=== PATIENT | male | born 1985 | race Caucasian/White ===

== ENCOUNTER 2017-07-20 19:58 | Emergency (ER) | payer MEDICAID, OTHER ==
[~2017-07-20] VITALS: Ht 177.8 cm; Wt 90.7 kg
[~2017-07-20 19:58] MED LIST: CLIN150C14 PO; CLIN300C8 PO; HYDR-971 PO; OXYC-323 PO
[2017-07-20 20:06] VITALS: BP 156/95
[2017-07-20] MEDS ORDERED: CLINDAMYCIN HCL 150 MG CAPSULE. PO ONE (20:30)
[2017-07-20] MEDS ORDERED: HYDROcodone/APAP 5/325MG 1 TAB TABLET PO ONE (20:30)
[2017-07-20] MEDS ORDERED: DICL50TA4 PO (20:42)
[2017-07-20] MEDS ORDERED: CLIN150C14 PO (20:42)
--- NOTE | 2017-07-20 20:42 | PHYS DOC ---
Past Medical History Past Medical History: Renal Failure, Unknown Additional Past Medical Histor: Osteomyelitis Past Surgical History: Other Additional Past Surgical Histo: dental, 'bladder reduction, kidney reduction' Alcohol Use: Occasionally Drug Use: None Adult General Chief Complaint Chief Complaint: DENTAL PROBLEM HPI HPI Patient is a 32 year old male with history of renal failure and joint infections/dental infection who presents today complaining of moderate right lower jaw dental pain from a dental infection that has been going on for months. Patient states he had similar infection on the left lower jaw. Patient denies any fever or trismus. No obvious gum swelling noted Review of Systems Review of Systems Constitutional: Denies fever or chills [] HENT: Right lower jaw dental infection. Musculoskeletal: Denies back pain or joint pain [] Integument: Denies rash or skin lesions [] Neurologic: Denies headache, focal weakness or sensory changes [] All other systems were reviewed and found to be within normal limits, except as documented in this note. Current Medications Current Medications Current Medications Medications (Trade) Dose Ordered Sig/Maricarmen Start Time Stop Time Status Last Admin Dose Admin Acetaminophen/ Hydrocodone Bitart (Lortab 5/325) 1 tab 1X ONCE 07/20/17 20:30 07/20/17 20:31 DC Clindamycin HCl (Cleocin) 450 mg 1X ONCE 07/20/17 20:30 07/20/17 20:31 DC Allergies Allergies Allergies Coded Allergies Type Severity Reaction Last Updated Verified Penicillins Allergy Intermediate Rash 04/09/16 Yes vancomycin Allergy Intermediate Nausea and Vomiting 04/09/16 Yes Physical Exam Physical Exam Constitutional: Well developed, well nourished, no acute distress, non-toxic appearance. [] HENT: Normocephalic, atraumatic, bilateral external ears normal, oropharynx moist, nose normal. [] Scattered dental caries noted throughout his teeth. No obvious dental abscess. No obvious gum swelling noted on exam. No obvious gum redness. Skin: Warm, dry, no erythema, no rash. [] Back: No tenderness, no CVA tenderness. [] Extremities: No tenderness, no cyanosis, no clubbing, ROM intact, no edema. [] Neurologic: Alert and oriented X 3, normal motor function, normal sensory function, no focal deficits noted. [] Psychologic: Affect normal, judgement normal, mood normal. [] Current Patient Data Vital Signs Vital Signs Date Time Temp Pulse Resp B/P (MAP) Pulse Ox O2 Delivery O2 Flow Rate FiO2 07/20/17 20:06 98.1 95 20 100 Room Air 98.1 EKG EKG [] Radiology/Procedures Radiology/Procedures [] Course & Med Decision Making Course & Med Decision Making Pertinent Labs and Imaging studies reviewed. (See chart for details) Patient is in the ED with chronic jaw pain from dental infections. Patient states he has history of chronic joint infections. I looked back in his chart. This patient has been documented to have been seen at [facility] where he was noncompliant with his treatment and was fired by a surgeon. Questioned patient about this. Patient states he had his jaw shut after they did surgery to clear the infection. He states he requested them to remove the wiring so he can eat and the doctor who did the procedure has refused to see him since then. Discharged patient on clindamycin and diclofenac. Instructed him to follow-up with a dentist or oral surgeon. Dragon Disclaimer Dragon Disclaimer This electronic medical record was generated, in whole or in part, using a voice recognition dictation system. Departure Departure Impression: Primary Impression: Infected dental caries Disposition: HOME, SELF-CARE Condition: STABLE Referrals: NO PCP (PCP) Follow up with your dentist or dental surgeon as soon as you can Patient Instructions: Dental Caries, Dental Pain, [id number] Additional Instructions: You were seen for oral/dental infection. Follow-up with a dentist or an oral surgeon as soon as you can. Scripts Diclofenac Sodium (DICLOFENAC SODIUM) 50 Mg Tablet. 1 TAB PO BID, #30 TAB 0 Refills Prov: KAVON TAYLOR APRN 07/20/17 Clindamycin Hcl (CLINDAMYCIN HCL) 150 Mg Capsule 3 CAP PO TID, #90 CAP Prov: KAVON TAYLOR APRN 07/20/17 KAVON TAYLOR APRN Jul 20, 2017 20:42
== END 2017-07-20 20:48 | disposition home or self-care (01) ==
LOC: ER 19:58
DX: K04.7 Periapical abscess without sinus (principal); M86.9 Osteomyelitis, unspecified; Z88.0 Allergy status to penicillin; Z88.1 Allergy status to other antibiotic agents
CPT/HCPCS: 99283